=== PATIENT | male | born 1995 | race Caucasian/White ===

== ENCOUNTER 2017-11-08 22:46 | Emergency (ER) | payer BC ==
--- NOTE | 2017-11-08 23:12 | Emergency Department Record ---
History of Present Illness - General Chief Complaint: Chest Pain Stated Complaint: CHEST PAIN Time Seen by Provider: 11/08/17 22:57 Source: Patient - History of Present Illness Initial Comments: The patient states that he has had chest tightness for the past 4 days, since . He states it is associated with shortness of breath, like his throat is tight, like it is hard to swallow, even water, yet he can swallow water. He has a feeling like it is hard to take a deep breath (this lone symptom he has had for many months), and his hands have been shaking all the time for the past 4 days. His fingertips, he notices, are numb on and off as well. At times he is diaphoretic. He is not a smoker although he has had an occasional cigarette. He states his maternal grandmother has a history of blood clots but he has never been checked for this himself. He denies other symptoms such as fever, chills productive cough, sore throat, abdominal pain, calf tenderness or leg swelling. He had childhood asthma, but was told that he had "grown out of it," and has not used inhalers for years. He smokes cigarettes on rare occasion. Pain Location: Substernal, Left chest - Related Data Home Medications Medication Instructions Recorded Confirmed Last Taken No Home Med [NO HOME MEDS] 11/08/17 11/08/17 Unknown Allergies Allergy/AdvReac Type Severity Reaction Status Date / Time No Known Drug Allergies Allergy Verified 11/08/17 23:11 Review of Systems Reviewed: No additional complaints except as noted below Constitutional: Reports: As per HPI. Denies: Chills, Fever, Malaise, Night sweats, Weakness, Weight change Eyes: Reports: As per HPI. Denies: Eye discharge, Eye pain, Photophobia, Vision change ENT: Reports: As per HPI. Denies: Congestion, Dental pain, Ear pain, Epistaxis , Hearing loss, Throat pain Respiratory: Reports: As per HPI. Denies: Cough, Dyspnea, Hemoptysis, Stridor, Wheezes Cardiovascular: Reports: As per HPI. Denies: Arrhythmia, Chest pain, Dyspnea on exertion, Edema, Murmurs, Orthopnea, Palpitations, Paroxysmal nocturnal dyspnea, Rheumatic Fever, Syncope Endocrine: Reports: As per HPI. Denies: Fatigue, Heat or cold intolerance, Polydipsia, Polyuria Gastrointestinal: Reports: As per HPI. Denies: Abdominal pain, Constipation, Diarrhea, Hematemesis, Hematochezia, Melena, Nausea, Vomiting Genitourinary: Reports: As per HPI. Denies: Dysuria, Frequency, Hematuria, Incontinence, Retention, Testicular pain, Testicular mass, Urgency Musculoskeletal: Reports: As per HPI. Denies: Arthralgia, Back pain, Gout, Joint swelling, Myalgia, Neck pain Skin: Reports: As per HPI. Denies: Bruising, Change in color, Change in hair/ nails, Lesions, Pruritus, Rash Neurological: Reports: As per HPI. Denies: Abnormal gait, Confusion, Headache, Numbness, Paresthesias, Seizure, Tingling, Tremors, Vertigo, Weakness Psychiatric: Reports: As per HPI. Denies: Anxiety, Auditory hallucinations, Depression, Homicidal thoughts, Suicidal thoughts, Visual hallucinations Hematological/Lymphatic: Reports: As per HPI. Denies: Anemia, Blood Clots, Easy bleeding, Easy bruising, Swollen glands Past Medical History - SOCIAL HISTORY Smoking Status: Light tobacco smoker (<10/day) - RESPIRATORY Hx Asthma: No (had childhood asthma, but "has grown out of it") - CARDIOVASCULAR Hx Cardio Disorders: No Physical Exam - General General Appearance: Alert, Oriented x3, Cooperative, Anxious - Head Head exam: Normal inspection - Eye Eye exam: Normal appearance, PERRL Pupils: Normal accommodation - ENT ENT exam: Normal exam, Mucous membranes moist, Normal external ear exam, Normal orophraynx, TM's normal bilaterally Ear exam: Normal external inspection. negative: External canal tenderness Nasal Exam: Normal inspection. negative: Discharge, Sinus tenderness Mouth exam: Normal external inspection, Tongue normal Teeth exam: Normal inspection. negative: Dental caries Throat exam: Normal inspection. negative: Tonsillar erythema, Tonsillar exudate - Neck Neck exam: Normal inspection, Full ROM. negative: Tenderness - Respiratory Respiratory exam: Decreased breath sounds (distant), Prolonged expiratory. negative: Accessory muscle use, Chest wall tenderness, Rales, Respiratory distress, Rhonchi, Stridor, Wheezes - Cardiovascular Cardiovascular Exam: Regular rate, Normal rhythm, Normal heart sounds, Tachycardia - GI/Abdominal GI/Abdominal exam: Soft, Normal bowel sounds. negative: Tenderness - Rectal Rectal exam: Deferred - exam: Deferred - Extremities Extremities exam: Normal inspection, Full ROM, Normal capillary refill. negative: Calf tenderness, Pedal edema, Tenderness - Back Back exam: Reports: Normal inspection, Full ROM. Denies: Muscle spasm, Rash noted, Tenderness - Neurological Neurological exam: Alert, CN II-XII intact, Normal gait, Oriented X3, Reflexes normal. negative: Motor sensory deficit - Psychiatric Psychiatric exam: Anxious, Normal mood - Skin Skin exam: Dry, Intact, Normal color, Warm. 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 He has no tingling in his fingertips, no SOB, no tightness. Still feels the urge to take deep breaths intermittently. Awaiting CT results. 11/09/17 00:16 11/09/17 00:57 Reevaluation #2: After albuterol the patient states that it feels a little less tight in his chest. He is taking deep sighs less often since nebulizer. 11/09/17 01:02 Reevaluation #3: DW Dr. Mullins medicine monotype caster at [facility] who accepts patient in transfer for direct admit. Patient understands and agrees. Pulmonary consult in a.m. for evaluation for asthma. 11/09/17 01:10 Medical Decision Making - Management Options MDM Management: Additional Work-up Planned (e.g. ADM/Transfer/OP Study) - Data Complexity MDM Data: Labs Ordered and/or Reviewed, X-Ray Ordered and/or Reviewed (CTA: + pneumomediastinum; no fluid in mediastinum, no PE, no infiltrates; question barotrauma? per [facility].), EKG Ordered and/or Reviewed - Lab Data Result diagrams: 11/08/17 23:18 11/08/17 23:18 - EKG Data -: EKG Interpreted by Me EKG: No Acute Changes, Normal EKG (No prior.) Disposition Disposition: Transfer Clinical Impression: Pneumomediastinum Disposition: Acute Care Hospital Transfer Transfer To: [facility] Reason For Transfer: pneumomediastinum; medicine and pulmonary facilities Accepting Physician: Dr. Mullins Time Discussed w/Accepting Physician: 01:16 Condition: (1) Good Forms: Patient Portal Access Quality - Quality Measures Quality Measures: N/A - Blood Pressure Screening Does Patient Have Any of the Following: No Blood Pressure Classification: Pre-Hypertensive BP Reading Systolic Measurement: 124 Diastolic Measurement: 59 Screening for High Blood Pressure: < Normal BP, F/U Not Required > [G8783]
[2017-11-08] MEDS: ASPIRIN 325 MG TABLET PO ONE (23:23)
[2017-11-08 23:26] LABS: BASO % 0.3 % (0-6); EOS % 0.9 % (0-6); GRAN % 50.2 % (47-80); HEMATOCRIT 45.1 % (42.0-52.0); HEMOGLOBIN 16.3 gm/dl (14.0-18.0); LYMPH % 40.8 % (16-45); MEAN CELL VOLUME 83.5 fl (81-97); MEAN CORPUSCULAR HEMOGLOBIN 30.2 pg (27-33); MEAN CORPUSCULAR HGB CONC 36.1 g/dl (32-36); MONO % 7.8 % (0-9); PLATELET COUNT 331 K/uL (130-400); RED CELL DISTRIBUTION WIDTH 12.6 % (11.5-14.5); WHITE BLOOD COUNT W/O DIFF 11.6 K/uL (4.2-12.2)
[2017-11-08 23:37] LABS: BLOOD UREA NITROGEN 17 mg/dL (6-20); CREATININE 0.9 mg/dL (0.7-1.2); EST GLOMERULAR FILTRATION RATE > 60 mL/min; TOTAL PROTEIN 7.6 g/dL (6.6-8.7)
[2017-11-08 23:39] LABS: GLUCOSE,RANDOM 99 mg/dL (74-109)
[2017-11-08 23:40] LABS: PARTIAL THROMBOPLASTIN TIME 28.7 SECONDS (24.5-39.1); PROTHROMBIN TIME (PATIENT) 10.8 SECONDS (9.5-12.1)
[2017-11-08 23:42] LABS: ALB/GLOB RATIO 1.7 (1.1-1.8); ALBUMIN 4.8 g/dL (4.0-5.0); ALKALINE PHOSPHATASE 67 U/L (40-129); ALT/SGPT 19 U/L (<41); AST/SGOT 19 U/L (10.0-50.0)
[2017-11-08 23:54] LABS: THYROID STIMULATING HORMONE 3.11 uIU/mL (0.270-4.20)
[2017-11-08] MEDS: LORAZEPAM 2 MG/ML VIAL IV ONE (23:58)
[2017-11-09] MEDS: ALBUTEROL SULFATE (0.083%) 2.5 MG/3 ML NEB INH ONE (00:54)
--- NOTE | 2017-11-10 08:31 | CT ANGIOGRAM REPORT ---
EXAM: CTA OF THE CHEST HISTORY: SHORTNESS OF BREATH. TECHNIQUE: CTA of the chest was performed using pulmonary embolus protocol following the IV administration of 100 ml of Omnipaque 350 contrast. Axial images were obtained with coronal and sagittal MIP reconstructions. Comparison: None. FINDINGS: The mediastinal vasculature enhances normally. There is no intraluminal filling defect to suggest pulmonary embolus, however, there is a moderate degree of artifact from the contrast bolus in the superior vena cava. Negative for thoracic aortic aneurysm or dissection. The heart and pericardium are unremarkable. Limited evaluation of the upper abdomen is unremarkable. The osseous structures are grossly intact. There is nonspecific pneumomediastinum. The etiology is indeterminate. No pneumothorax. The visualized lungs are clear. The visualized airways are patent. IMPRESSION: 1. NEGATIVE FOR PULMONARY EMBOLUS, THORACIC AORTIC ANEURYSM, OR DISSECTION. 2. PNEUMOMEDIASTINUM, OF INDETERMINATE ETIOLOGY. JOB NUMBER: [id number] MTDD
== END 2017-11-09 01:42 | disposition short-term general hospital (02) ==
LOC: ER 22:46
DX: J98.2 Interstitial emphysema (principal); R06.02 Shortness of breath; R07.89 Other chest pain
CPT/HCPCS: 71275; 80053; 84443; 84484; 85025; 85379; 85610; 85651; 85730; 93005; 93010; 94640; 96374; 99285; J7613